=== PATIENT | female | born 1950 ===

== ENCOUNTER 2016-11-13 10:00 | Outpatient (RCR) | payer MEDICARE, OTHER ==
[~2016-11-13 10:00] MED LIST: AMOXICILLIN500 M1 PO; NKM
== END 2016-11-24 | disposition home or self-care (01) ==
LOC: EDUNIT# → PTY 10:00
DX: M19.90 Unspecified osteoarthritis, unspecified site (principal); M54.5 Low back pain; M81.0 Age-related osteoporosis without current pathological fracture; E78.5 Hyperlipidemia, unspecified
CPT/HCPCS: 97110; 97162; G0283; G8978; G8979

== ENCOUNTER 2016-11-27 09:00 | Outpatient (RCR) | payer MEDICARE | END 2016-12-25 | disposition home or self-care (01) | LOC: PTY 09:00 | DX: M19.90 Unspecified osteoarthritis, unspecified site (principal); M54.5 Low back pain; M81.0 Age-related osteoporosis without current pathological fracture; E78.5 Hyperlipidemia, unspecified; K21.9 Gastro-esophageal reflux disease without esophagitis | CPT/HCPCS: 97035; 97110; G0283 ==

== ENCOUNTER 2017-01-01 08:20 | Outpatient (RCR) | payer MEDICARE | END 2017-01-24 | disposition home or self-care (01) | LOC: PTY 08:20 | DX: M19.90 Unspecified osteoarthritis, unspecified site (principal) | CPT/HCPCS: 97110; G0283 ==

== ENCOUNTER 2017-01-29 08:45 | Outpatient (RCR) | payer MEDICARE | END 2017-02-24 | disposition home or self-care (01) | LOC: PTY 08:45 | DX: M19.90 Unspecified osteoarthritis, unspecified site (principal) | CPT/HCPCS: 97110; G0283; G8979; G8980 ==